=== PATIENT | female | born 1965 | race Caucasian/White ===

== ENCOUNTER 2016-03-11 11:49 | Emergency (ER) | payer BC, MEDICAID ==
[2016-03-11] MEDS ORDERED: oxyCOD/ACETAMIN 5 MG/325 MG TABLET PO STA (12:50)
[2016-03-11] MEDS ORDERED: oxyCOD/ACETAMIN 5 MG/325 MG TABLET PO ONE (13:15)
== END 2016-03-11 14:52 | disposition home or self-care (01) ==
DX: M25.561 Pain in right knee (principal); G89.29 Other chronic pain; W10.9XXA Fall (on) (from) unspecified stairs and steps, initial encounter; Y92.008 Other place in unspecified non-institutional (private) residence as the place of occurrence of the external cause; F17.200 Nicotine dependence, unspecified, uncomplicated; Z96.651 Presence of right artificial knee joint
CPT/HCPCS: 73560; 99283; A9270

== ENCOUNTER 2016-07-07 20:54 | Outpatient (CLI) | payer MEDICAID | END 2016-07-07 20:55 | disposition critical access hospital (66) | DX: S81.812A Laceration without foreign body, left lower leg, initial encounter (principal); X78.9XXA Intentional self-harm by unspecified sharp object, initial encounter; Y92.039 Unspecified place in apartment as the place of occurrence of the external cause | CPT/HCPCS: A0425; A0429 ==

== ENCOUNTER 2016-07-07 20:57 | Emergency (ER) | payer BC, MEDICAID ==
[2016-07-07 21:22] LABS: BASOPHILS % (AUTO) 0.6 %; EOSINOPHILS # (AUTO) 0.1 10^3/uL (0.0-0.7); EOSINOPHILS % (AUTO) 1.3 %; HCT - HEMATOCRIT 41.5 % (37.0-47.0); HGB - HEMOGLOBIN 13.6 g/dL (12.0-16.0); LYMPHOCYTES # (AUTO) 2.1 10^3/uL (1.5-3.5); LYMPHOCYTES % (AUTO) 43.6 %; MEAN CORPUSCULAR HEMOGLOBIN 30.7 pg (27.0-31.0); MEAN CORPUSCULAR HGB CONC 32.8 g/dL (32.0-36.0); MEAN CORPUSCULAR VOLUME 93.4 fL (81.0-99.0); MONOCYTES # (AUTO) 0.2 10^3/uL (0.0-1.0); MONOCYTES % (AUTO) 4.2 %; NEUTROPHILS # (AUTO) 2.5 10^3/uL (1.5-6.6); NEUTROPHILS % (AUTO) 50.3 %; RED BLOOD COUNT 4.44 10^6/uL (4.20-5.40); RED CELL DISTRIBUTION WIDTH 12.8 % (12.0-15.0); UNCORRECTED WHITE BLOOD COUNT 4.9 x10^3/uL; WHITE BLOOD COUNT 4.9 x10^3/uL (4.8-10.8)
[2016-07-07 21:35] LABS: ALBUMIN/GLOBULIN RATIO 1.4 (1.0-2.2); BILIRUBIN,TOTAL 0.6 mg/dL (0.2-1.0); BUN - BLOOD UREA NITROGEN 10 mg/dL (6-20); CALCIUM 9.1 mg/dL (8.5-10.3); CARBON DIOXIDE - CO2 29 mmol/L (21-32); CHLORIDE 106 mmol/L (101-111); CREATININE 0.6 mg/dL (0.4-1.0); GFR - MDRD 106 (>89); GLUCOSE 110 mg/dL (70-100); LIPASE 52 U/L (22-51); POTASSIUM 3.8 mmol/L (3.5-5.0); SALICYLATE < 6.0 mg/dL; SODIUM 144 mmol/L (135-145); TOTAL PROTEIN 7.7 g/dL (6.7-8.2)
[2016-07-07 21:35] LABS: BILIRUBIN,URINE NEGATIVE (NEGATIVE); PH,URINE 6.5 PH (5.0-7.5)
[2016-07-07 21:38] LABS: ACETAMINOPHEN < 10 ug/mL (10-30)
[2016-07-07 21:42] LABS: HCG UR QUAL NEGATIVE; UA w/ MICROSCOPIC CHARGE YES
--- NOTE | 2016-07-07 21:44 | ED Physician Documentation ---
PD HPI MHE - Stated complaint Stated Complaint: SI - Chief complaint Chief Complaint: MHE - History obtained from History obtained from: Patient, EMS - History of Present Illness Primary symptom: Suicidal ideation, Self harm - OD Timing - onset: Today Contributing factors: Sig other, Substance abuse - ETOH Similar symptoms before: Work up / diagnostics, Treatment Recently seen: Not recently seen - Additional information Additional information: Patient is a 50 year old female with a history of anxiety and depression who is presenting to the emergency department for suicidal ideation. Patient states that she drank three glases of fireball on ice and was feeling depressed. She didn't want to kill herself so she called the suicide hotline, but midway through the call she didn't want to talk to them anymore and wasn't suicidal so she hung up. ems and police were called and they went to the patient's house to bring the patient in. Upon initial evaluation in the emergency department patient was mildly intoxicated but stated that she was not currently suicidal. Review of Systems Unable to obtain: Intoxicated Constitutional: denies: Fever, Chills Eyes: denies: Loss of vision, Photophobia Ears: denies: Ear pain, Drainage/discharge Nose: denies: Rhinorrhea / runny nose, Congestion, Epistaxis Throat: denies: Sore throat, Swollen tonsils Respiratory: denies: Dyspnea, Cough, Wheezing GI: denies: Abdominal Pain, Nausea, Vomiting : denies: Dysuria, Frequency, Hesitancy, Unable to Void Skin: denies: Rash, Lesions Musculoskeletal: reports: Extremity pain. denies: Neck pain, Back pain Neurologic: denies: Generalized weakness, Focal weakness, Difficulty speaking Psychiatric: reports: Depressed, Anxiety. denies: Homicidal PD PAST MEDICAL HISTORY - Past Medical History Cardiovascular: High cholesterol Psych: Depression, Anxiety, Panic attacks Musculoskeletal: Chronic back pain - Past Surgical History Past Surgical History: Yes General: Appendectomy - Present Medications Home Medications: Ambulatory Orders Medication Instructions Recorded Confirmed DULoxetine [Cymbalta] 30 mg PO DAILY 05/16/15 11/13/15 Fenofibrate 40 mg PO DAILY 05/16/15 11/13/15 Meloxicam 15 mg PO DAILY 05/16/15 11/13/15 Methocarbamol 500 mg PO Q8HR PRN 05/16/15 11/13/15 Oxycodone HCl 5 mg PO Q6HR PRN 05/16/15 11/13/15 Sertraline [Zoloft] 100 mg PO DAILY 05/16/15 11/13/15 Zolpidem [Ambien] 5 mg PO QPM 05/16/15 11/13/15 Ciprofloxacin HCl [Cipro] 500 mg PO BID #14 tablet 11/13/15 Gabapentin 300 mg PO TID #10 capsule 11/13/15 - Allergies Allergies/Adverse Reactions: Allergies Allergy/AdvReac Type Severity Reaction Status Date / Time No Known Drug Allergies Allergy Verified 11/13/15 17:23 - Social History Does the pt smoke?: Yes Smoking Status: Current every day smoker Does the pt drink ETOH?: Yes Does the pt have substance abuse?: No - Immunizations Immunizations are current?: Yes PD ED PE NORMAL - General General: Alert and oriented X 3, No acute distress - HEENT HEENT: Atraumatic, PERRL - Neck Neck: Supple, no meningeal sign, No JVD - Cardiac Cardiac: RRR, No murmur - Respiratory Respiratory: No respiratory distress - Abdomen Abdomen: Soft, Non tender, Non distended - Derm Derm: Normal color, Warm and dry, No rash - Extremities Extremities: No deformity, No tenderness to palpate, Normal ROM s pain, No edema - Neuro Neuro: No sensory deficit PD ED PE EXPANDED - General General: Disheveled, poorly kept - Psych Psych: Intoxicated / AOB, Depressed, Tearful Results - Vitals Vitals: Vital Signs - 24 hr 07/07/16 07/07/16 07/08/16 21:05 23:02 02:02 Temperature 36.6 C 37.1 C Heart Rate 104 H 102 H 101 H Respiratory 16 16 22 Rate Blood Pressure 134/91 H 115/74 151/78 H O2 Saturation 97 97 96 07/08/16 05:50 Temperature Heart Rate 67 Respiratory 14 Rate Blood Pressure 130/69 O2 Saturation 97 Oxygen O2 Source Room air - Labs Labs: Laboratory Tests 07/07/16 07/07/16 07/07/16 21:16 21:16 21:16 WBC 4.9 RBC 4.44 Hgb 13.6 Hct 41.5 MCV 93.4 MCH 30.7 MCHC 32.8 RDW 12.8 Plt Count 235 MPV 9.0 Neut # 2.5 Lymph # 2.1 [place] # 0.2 Eos # 0.1 Baso # 0.0 Absolute Nucleated RBC 0.00 Nucleated RBCs 0.0 Sodium 144 Potassium 3.8 Chloride 106 Carbon Dioxide 29 Anion Gap 9.0 BUN 10 Creatinine 0.6 Estimated GFR (MDRD) 106 Glucose 110 H Calcium 9.1 Total Bilirubin 0.6 AST 21 ALT 22 Alkaline Phosphatase 82 Troponin I Total Protein 7.7 Albumin 4.5 Globulin 3.2 Albumin/Globulin Ratio 1.4 Lipase 52 H TSH 0.39 Urine Color Urine Clarity Urine pH Ur Specific [place] Urine Protein Urine Glucose (UA) Urine Ketones Urine Occult Blood Urine Nitrite Urine Bilirubin Urine Urobilinogen Ur Leukocyte Esterase Urine RBC Urine WBC Ur Squamous Epith Cells Urine Bacteria Ur Microscopic Review Urine Culture Comments Urine HCG, Qual Salicylates < 6.0 Urine Opiates Screen Ur Oxycodone Screen Urine Methadone Screen Ur Propoxyphene Screen Acetaminophen < 10 L Ur Barbiturates Screen Ur Tricyclics Screen Ur Phencyclidine Scrn Ur Amphetamine Screen U Methamphetamines Scrn U Benzodiazepines Scrn Urine Cocaine Screen U Cannabinoids Screen Ethyl Alcohol 212.7 07/07/16 07/07/16 07/08/16 21:25 21:25 03:28 WBC RBC Hgb Hct MCV MCH MCHC RDW Plt Count MPV Neut # Lymph # [place] # Eos # Baso # Absolute Nucleated RBC Nucleated RBCs Sodium Potassium Chloride Carbon Dioxide Anion Gap BUN Creatinine Estimated GFR (MDRD) Glucose Calcium Total Bilirubin AST ALT Alkaline Phosphatase Troponin I Total Protein Albumin Globulin Albumin/Globulin Ratio Lipase TSH Urine Color YELLOW Urine Clarity CLEAR Urine pH 6.5 Ur Specific [place] 1.010 Urine Protein NEGATIVE Urine Glucose (UA) NEGATIVE Urine Ketones NEGATIVE Urine Occult Blood SMALL H Urine Nitrite NEGATIVE Urine Bilirubin NEGATIVE Urine Urobilinogen 0.2 (NORMAL) Ur Leukocyte Esterase TRACE H Urine RBC 0-5 Urine WBC 6-10 H Ur Squamous Epith Cells MANY Squamous H Urine Bacteria Few Ur Microscopic Review INDICATED Urine Culture Comments NOT INDICATED Urine HCG, Qual NEGATIVE Salicylates Urine Opiates Screen NEGATIVE Ur Oxycodone Screen POSITIVE H Urine Methadone Screen NEGATIVE Ur Propoxyphene Screen NEGATIVE Acetaminophen Ur Barbiturates Screen NEGATIVE Ur Tricyclics Screen NEGATIVE Ur Phencyclidine Scrn NEGATIVE Ur Amphetamine Screen NEGATIVE U Methamphetamines Scrn NEGATIVE U Benzodiazepines Scrn NEGATIVE Urine Cocaine Screen NEGATIVE U Cannabinoids Screen NEGATIVE Ethyl Alcohol 91.2 07/08/16 07/08/16 03:28 05:11 WBC RBC Hgb Hct MCV MCH MCHC RDW Plt Count MPV Neut # Lymph # [place] # Eos # Baso # Absolute Nucleated RBC Nucleated RBCs Sodium Potassium Chloride Carbon Dioxide Anion Gap BUN Creatinine Estimated GFR (MDRD) Glucose Calcium Total Bilirubin AST ALT Alkaline Phosphatase Troponin I < 0.04 Total Protein Albumin Globulin Albumin/Globulin Ratio Lipase TSH Urine Color Urine Clarity Urine pH Ur Specific [place] Urine Protein Urine Glucose (UA) Urine Ketones Urine Occult Blood Urine Nitrite Urine Bilirubin Urine Urobilinogen Ur Leukocyte Esterase Urine RBC Urine WBC Ur Squamous Epith Cells Urine Bacteria Ur Microscopic Review Urine Culture Comments Urine HCG, Qual Salicylates Urine Opiates Screen Ur Oxycodone Screen Urine Methadone Screen Ur Propoxyphene Screen Acetaminophen Ur Barbiturates Screen Ur Tricyclics Screen Ur Phencyclidine Scrn Ur Amphetamine Screen U Methamphetamines Scrn U Benzodiazepines Scrn Urine Cocaine Screen U Cannabinoids Screen Ethyl Alcohol 56.2 PD MEDICAL DECISION MAKING - ED course Complexity details: reviewed old records, reviewed results, re-evaluated patient , considered differential, d/w patient ED course: Patient was seen and examined at bedside. labs were drawn and urine was collected. Patient was found to be intoxicated with a blood alcohol level of 212. Patient was given time to metabolize the etoh. Patient was treated with tylenol for pain. repeat blood alcohol was still elevated. patient remained in pain and was treated with one tramadol. labs were repeated until the etoh was below 80. mental health screener was contacted. They stated that they would come in and evaluate the patient. Patient was signed over to dr ruiz pending evaluation.
[2016-07-07 21:49] LABS: UR CULTURE IF IND NOT INDICATED
[2016-07-07] MEDS ORDERED: ACETAMINOPHEN 325 MG TABLET PO ONE (23:27)
[2016-07-08] MEDS ORDERED: ACETAMINOPHEN 325 MG TABLET PO STA (00:37)
[2016-07-08] MEDS ORDERED: IBUPROFEN 600 MG TABLET PO STA (02:18)
[2016-07-08] MEDS ORDERED: IBUPROFEN 600 MG TABLET PO ONE (02:26)
[2016-07-08] MEDS ORDERED: traMADol 50 MG TABLET PO STA (02:28)
[2016-07-08] MEDS ORDERED: traMADol 50 MG TABLET PO ONE (02:29)
[2016-07-08 08:25] VITALS: BP 130/32
--- NOTE | 2016-07-08 08:43 | ED Physician Documentation ---
ED Addendum - Addendum Addendum: 07/08/16 08:42 Patient slept for good part of night. More relaxed this morning. Talked with [facility] soon after start of my shift. MINA Rodriguez felt the patient was not a risk of self-harm, gave info for resources (patient preferrring to contact [facility], which she has worked with in the past). Will release the patient from the ER.
== END 2016-07-08 09:17 | disposition home or self-care (01) ==
LOC: EDUNIT# → ED 20:57
DX: F10.129 Alcohol abuse with intoxication, unspecified (principal); Y90.7 Blood alcohol level of 200-239 mg/100 ml; F32.9 Major depressive disorder, single episode, unspecified; R45.851 Suicidal ideations; T14.8 Other injury of unspecified body region; X78.9XXA Intentional self-harm by unspecified sharp object, initial encounter
CPT/HCPCS: 36415; 80053; 80306; 80307; 80320; 80329; 81001; 81025; 83690; 84443; 84484; 85025; 99284; A9270; 81003; 87086

== ENCOUNTER 2016-07-12 04:26 | Outpatient (CLI) | payer MEDICAID ==
[2016-07-12 05:03] LABS: ALBUMIN/GLOBULIN RATIO 1.3 (1.0-2.2); BILIRUBIN,TOTAL 0.5 mg/dL (0.2-1.0); BUN - BLOOD UREA NITROGEN 20 mg/dL (6-20); CALCIUM 9.2 mg/dL (8.5-10.3); CARBON DIOXIDE - CO2 26 mmol/L (21-32); CHLORIDE 104 mmol/L (101-111); CHOL/HDL RATIO 4.5 (<4.4); CHOLESTEROL 219 mg/dL; CREATININE 0.6 mg/dL (0.4-1.0); GFR - MDRD 106 (>89); GLUCOSE 98 mg/dL (70-100); HDL CHOLESTEROL 49 mg/dL; SODIUM 138 mmol/L (135-145); TRIGLYCERIDES 925 mg/dL
[2016-07-12 05:27] LABS: LDL CHOLESTEROL,DIRECT 83 mg/dL
== END 2016-07-12 04:27 | disposition home or self-care (01) ==
LOC: LAB 04:26
PROVIDERS: ATTEND Physician Assistant
DX: E78.5 Hyperlipidemia, unspecified (principal); M79.7 Fibromyalgia; G47.00 Insomnia, unspecified; E78.1 Pure hyperglyceridemia
CPT/HCPCS: 36415; 80053; 80061

== ENCOUNTER 2016-08-30 09:06 | Outpatient (CLI) | payer MEDICAID ==
[2016-08-30 09:29] LABS: BASOPHILS % (AUTO) 0.6 %; EOSINOPHILS # (AUTO) 0.1 10^3/uL (0.0-0.7); EOSINOPHILS % (AUTO) 1.4 %; HCT - HEMATOCRIT 38.8 % (37.0-47.0); HGB - HEMOGLOBIN 13.4 g/dL (12.0-16.0); LYMPHOCYTES # (AUTO) 1.7 10^3/uL (1.5-3.5); LYMPHOCYTES % (AUTO) 27.4 %; MEAN CORPUSCULAR HEMOGLOBIN 31.5 pg (27.0-31.0); MEAN CORPUSCULAR HGB CONC 34.5 g/dL (32.0-36.0); MEAN CORPUSCULAR VOLUME 91.2 fL (81.0-99.0); MEAN PLATELET VOLUME 8.3 fL (7.9-10.8); MONOCYTES # (AUTO) 0.3 10^3/uL (0.0-1.0); MONOCYTES % (AUTO) 5.1 %; NEUTROPHILS % (AUTO) 65.5 %; RED BLOOD COUNT 4.25 10^6/uL (4.20-5.40); RED CELL DISTRIBUTION WIDTH 12.6 % (12.0-15.0); UNCORRECTED WHITE BLOOD COUNT 6.1 x10^3/uL; WHITE BLOOD COUNT 6.1 x10^3/uL (4.8-10.8)
[2016-08-30 10:19] LABS: CHOL/HDL RATIO 6.5 (<4.4); CHOLESTEROL 260 mg/dL; HDL CHOLESTEROL 40 mg/dL; IRON 70 ug/dL (28-170); TOTAL IRON BINDING CAPACITY 396 ug/dL (250-450); TRANSFERRIN 283 mg/dL (192-382); TRIGLYCERIDES 642 mg/dL
[2016-08-30 10:59] LABS: THYROID STIMULATING HORMONE 1.6 uIU/mL (0.34-5.60)
[2016-08-30 11:07] LABS: LDL CHOLESTEROL,DIRECT 130 mg/dL
[2016-09-01 11:51] LABS: TEST RESULT REPORT (())
[2016-09-01 13:51] LABS: ANA SCREEN NEGATIVE (NEGATIVE)
== END 2016-08-30 09:07 | disposition home or self-care (01) ==
LOC: LAB 09:06
PROVIDERS: ATTEND Internal Medicine
DX: D64.9 Anemia, unspecified (principal); M25.561 Pain in right knee; R68.2 Dry mouth, unspecified
CPT/HCPCS: 36415; 80061; 81599; 83540; 84439; 84443; 84466; 85025; 85651; 86038; 86235

== ENCOUNTER 2016-09-01 17:32 | Emergency (ER) | payer MEDICAID ==
--- NOTE | 2016-09-01 18:05 | XRAY Preliminary Report ---
Exam: XR Wrist 4 View LT IMPRESSION: Negative wrist radiography. [facility] SITE ID: [id number]
--- NOTE | 2016-09-01 18:07 | XRAY Report ---
EXAM: LEFT WRIST RADIOGRAPHY EXAM DATE: 09/01/2016 05:58 PM. CLINICAL HISTORY: Wrist pain after recent injury. COMPARISON: None. TECHNIQUE: 4 views. FINDINGS: Bones: Normal. No fractures or bone lesions. Joints: Normal. No subluxations. Soft Tissues: Normal. No soft tissue swelling. IMPRESSION: Negative wrist radiography. [facility] Referring Provider Line: [phone] SITE ID: [id number]
[2016-09-01 18:28] VITALS: BP 123/74
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
== END 2016-09-01 18:56 | disposition home or self-care (01) ==
LOC: ED 17:32
DX: S63.502A Unspecified sprain of left wrist, initial encounter (principal); W01.0XXA Fall on same level from slipping, tripping and stumbling without subsequent striking against object, initial encounter; Y93.01 Activity, walking, marching and hiking; Y92.481 Parking lot as the place of occurrence of the external cause; F17.200 Nicotine dependence, unspecified, uncomplicated
CPT/HCPCS: 99283